=== PATIENT | female | born 1945 | race Caucasian/White ===

== ENCOUNTER 2020-05-10 07:44 | Outpatient (REF) | payer MEDICARE, SELFPAY ==
[2020-05-10 12:11] LABS: Alanine Aminotransferase 12 U/L (0-31); Anion Gap 11 (12-20); Aspartate Amino Transferase 20 U/L (5-31); Blood Urea Nitrogen 16 mg/dL (9-16); Calcium 9.3 mg/dL (8.4-10.2); Carbon Dioxide 28 mmol/L (22-29); Chloride 105 mmol/L (96-108); Cholesterol 209 mg/dL; Estimated Glomerular Filt Rate > 60; Glucose Fasting 84 mg/dL (60-99); HDL Cholesterol 74 mg/dL; LDL Cholesterol Calculated 125 mg/dl; Potassium 4.4 mmol/l (3.3-5.1); Sodium 140 mmol/L (135-145); Triglycerides 53 mg/dL
[2020-05-10 12:42] LABS: Vitamin D 25-OH Total 27.8 ng/mL (>30)
== END 2020-05-10 07:45 | disposition home or self-care (01) ==
LOC: HO.HMGCLDS 07:44
PROVIDERS: PCP Internal Medicine; Visit Provider Internal Medicine
DX: M85.80 Other specified disorders of bone density and structure, unspecified site (principal); Z00.01 Encounter for general adult medical examination with abnormal findings; I10 Essential (primary) hypertension
CPT/HCPCS: 80048; 80061; 82306; 84450; 84460

== ENCOUNTER 2021-02-02 15:44 | Outpatient (REF) | payer MEDICARE, SELFPAY ==
--- NOTE | ~2021-02-02 | US_ITS ---
EXAMINATION: US VENOUS ULTRASOUND WITH DOPPLER LOWER EXTREMITY, LEFT CLINICAL INFORMATION: Localized swelling, mass or lump left lower lobe COMPARISON: None TECHNIQUE: Ultrasound of the deep veins is performed from the hip to the calf with compression sonography and color and pulse Doppler assessment. Spectral analysis with color-flow imaging is performed. FINDINGS: There is normal venous compression and respiratory variation and augmented flow. The visualized common femoral vein, superficial femoral vein, profunda femoral vein, popliteal vein, and the trifurcation region shows no evidence of deep venous thrombosis. There is no significant popliteal fossa cyst. There are multiple left calf distal varicosities seen which are compressible. There is discoloration of skin above these varicosities. If the patient's symptoms persist, followup ultrasound in 5 days 7 days might be of value to exclude proximal propagation from a non-visualized calf vein. US/US venous duplex LE IMPRESSION: No DVT demonstrated in the left lower extremity. Multiple varicosities in the left distal calf. The varicosities are compressible.
== END 2021-02-02 15:45 | disposition home or self-care (01) ==
LOC: HO.US 15:44
PROVIDERS: PCP Internal Medicine; Visit Provider Internal Medicine
DX: R22.42 Localized swelling, mass and lump, left lower limb (principal)
CPT/HCPCS: 93971

== ENCOUNTER → 2021-03-23 10:17 | Outpatient (BNVA) | payer MEDICARE, SELFPAY | PROVIDERS: PCP Internal Medicine; Visit Provider Surgery Vascular Surgery | DX: I83.12 Varicose veins of left lower extremity with inflammation (principal) | CPT/HCPCS: 99202 ==

== ENCOUNTER 2021-05-13 08:59 | Outpatient (REF) | payer MEDICARE, SELFPAY ==
[2021-05-13 11:57] LABS: Alanine Aminotransferase 14 U/L (0-31); Anion Gap 13 (12-20); Aspartate Amino Transferase 16 U/L (5-31); Blood Urea Nitrogen 11 mg/dL (9-16); Calcium 9.6 mg/dL (8.4-10.2); Carbon Dioxide 25 mmol/L (22-29); Chloride 107 mmol/L (96-108); Cholesterol 204 mg/dL; Estimated Glomerular Filt Rate > 60; Glucose Fasting 90 mg/dL (60-99); HDL Cholesterol 71 mg/dL; LDL Cholesterol Calculated 118 mg/dl; Potassium 4.9 mmol/L (3.3-5.1); Sodium 140 mmol/L (135-145); Triglycerides 75 mg/dL
[2021-05-13 12:04] LABS: Vitamin D 25-OH Total 29.8 ng/mL (>30)
== END 2021-05-13 09:00 | disposition home or self-care (01) ==
LOC: HO.HMGCLDS 08:59
PROVIDERS: PCP Internal Medicine; Visit Provider Internal Medicine
DX: Z00.01 Encounter for general adult medical examination with abnormal findings (principal); M85.80 Other specified disorders of bone density and structure, unspecified site; I10 Essential (primary) hypertension; Z78.0 Asymptomatic menopausal state
CPT/HCPCS: 36415; 80048; 80061; 82306; 84450; 84460

== ENCOUNTER 2022-05-21 08:54 | Outpatient (REF) | payer MEDICARE, SELFPAY ==
[2022-05-21 11:30] LABS: MANUAL DIFF FLAG NO
[2022-05-21 11:55] LABS: Basophils Percent Auto 0.5 % (0-2); Eosinophils Absolute Auto 0.2 X10*3/uL (0.0-0.4); Eosinophils Percent Auto 5.1 % (0-4); Hematocrit 41.6 % (37.0-47.0); Hemoglobin 13.4 g/dl (12.0-16.0); Imm Gran Abs Auto 0.01 X10*3/uL (0.00-0.03); Imm Gran Pct Auto 0.3 % (0.0-0.4); Lymphocytes Absolute Auto 0.9 X10*3/uL (1.2-4.9); Lymphocytes Percent Auto 25.1 % (20-40); Mean Corpuscular HGB Conc 32.2 g/dl (31.0-35.0); Mean Corpuscular Volume 93.3 fL (80.0-98.0); Mean Platelet Volume 11.3 fL (9.4-12.3); Monocytes Absolute Auto 0.4 X10*3/uL (0.1-1.2); Monocytes Percent Auto 10.4 % (2-11); Neutrophils Absolute Auto 2.2 x10*3/uL (2.0-8.3); Neutrophils Percent Auto 58.6 % (45-73); Platelet Count 203 X10*3/uL (160-400); Red Blood Count 4.46 X10*6/uL (4.20-5.50); White Blood Count 3.8 X10*3/uL (4.8-10.8)
[2022-05-21 12:38] LABS: Alanine Aminotransferase 11 U/L (0-31); Aspartate Amino Transferase 15 U/L (5-31); Blood Urea Nitrogen 13 mg/dL (9-16); Calcium 9.7 mg/dL (8.4-10.2); Cholesterol 218 mg/dL; Estimated Glomerular Filt Rate > 60; Glucose Fasting 94 mg/dL (60-99); HDL Cholesterol 71 mg/dL; LDL Cholesterol Calculated 136 mg/dl; Triglycerides 57 mg/dL; Vitamin D 25-OH Total 34.3 ng/mL (>30)
[2022-05-21 12:51] LABS: Anion Gap 12 (12-20); Carbon Dioxide 27 mmol/L (22-29); Chloride 108 mmol/L (96-108); Potassium 4.5 mmol/L (3.3-5.1); Sodium 142 mmol/L (135-145)
== END 2022-05-21 08:55 | disposition home or self-care (01) ==
LOC: HO.HMGCLDS 08:54
PROVIDERS: PCP Internal Medicine; Visit Provider Internal Medicine
DX: Z00.01 Encounter for general adult medical examination with abnormal findings (principal); M85.80 Other specified disorders of bone density and structure, unspecified site; Z78.0 Asymptomatic menopausal state
CPT/HCPCS: 36415; 80048; 80061; 82306; 84450; 84460; 85025

== ENCOUNTER 2023-05-30 10:53 | Outpatient (AMB) | payer MEDICARE, SELFPAY ==
[2023-05-30 11:25] VITALS: BP 150/86; PULSE 51; O2SAT 100; BMI 28.6
--- NOTE | 2023-05-30 11:25 | MHC.PC.OV ---
Vital Signs 05/30/23 11:25 05/30/23 12:00 Height 5 ft 4 in Weight 166 lb 6 oz BMI 28.6 BP 150/86 H 140/80 H Blood Pressure Location Lt brachial Lt brachial Position Sitting Pulse 51 Pulse Source Pulse Oximeter Pulse Oximetry (%) 100 Oxygen Delivery Method Room Air Intake Visit Reasons: Annual PE Intake Note: Pt is here for her Annual PE Allergies azithromycin [Zithromax Z-Andriy] Adverse Reaction (Unknown, Verified 05/30/23 11:40) lightheadedness Medication List - Last Reconciled 05/30/23 by Linda Vuong MD calcium-vitamin D2 tabs PO cholecalciferol (vitamin D3) 25 mcg PO DAILY cranberry 400 mg PO DAILY triamcinolone acetonide 0.1% 1 appl topical BID 10 days Tobacco use date assessed: 05/30/23 Fall risk assessment: No Falls in past year Last assessed Fall Risk: 05/30/23 Dental Screening Dental Screen Date: 05/30/23 Did you have a dental visit in the last 12 months?: Yes Did you have a dental problem in the last 6 months where you did not have access to dental care?: No Was dental information given to patient?: Patient has dentist HPI Annual PE HPI Details 78-year-old lady here today for her physical exam. She has presence of osteopenia in multiple side seen on last bone density scan done in 2021 . Up-to-date with her screening mammogram done at [facility] December 2022 with negative findings and she had a colonoscopy done 2015, due again if patient wishes to repeat another 1 in 2025. Complains of bilateral shoulder pain and stiffnessafter raking the lawn for 3 days She has had her flu shot this year, has not yet had her COVID booster, up-to-date with her pneumonia vaccine, has not yet had her shingles vaccine. Blood pressure noted to be elevated on this visit. Patient states that she has been under lot of stress, taking care of her who is ill, and it is left to her to do most of the day-to-day management of her household. Overall however she has has been feeling well [facility] Medical History (Updated 05/30/23 @ 12:53 by Linda Vuong MD) Current hypersensitivity reaction Allergic rhinitis Menopause Varicose veins of lower extremity Acute dermatitis Lump of skin of left lower extremity Decreased hearing of right ear Osteoarthritis Osteopenia after menopause Surgical History History of carpal tunnel surgery History of ear surgery History of total hysterectomy Family History Father Pancreatic cancer Mother Dementia Sister Breast cancer Sister Breast cancer Son Mental health disorder Social History Housing: House Alcohol intake: current Patient Tobacco Use Status: Never used Tobacco e-Cigarette/Vaping Use: Never Used Second Hand Smoke Exposure: No service: No Current occupational status: retired Cognitive needs: No Hearing needs: No Vision needs: Yes Questionnaire PHQ-9 Over the last 2 weeks, how often have you been bothered by any of the following problems? 1. Little interest or pleasure in doing things: not at all 2. Feeling down, depressed, or hopeless: not at all 3. Trouble falling or staying asleep, or sleeping too much: not at all 4. Feeling tired or having little energy: not at all 5. Poor appetite or overeating: not at all 6. Feeling bad about yourself - or that you are a failure or have let yourself or your family down: not at all 7. Trouble concentrating on things, such as reading the newspaper or watching television: not at all 8. Moving or speaking so slowly that other people could have noticed. Or the opposite - being so fidgety or restless that you have been moving around a lot more than usual: not at all 9. Thoughts that you would be better off or of hurting yourself in some way: not at all Total score: 0 Depression Screening Interpretation: Negative Depression Screening Done: Yes 63277 - PHQ-9 Billing: Yes Source: Developed by Drs. Nate John, Jade Wise, Jamison Tapia and colleagues, with an educational taryn from [employer]. Thrive Questionnaire Date Thrive assessed: 05/30/23 I am a: Patient What is your living situation today?: I have a steady place to live Within the past 12 months, did the food you bought not last and you didn't have the money to get more?: Never true Within the past 12 months, did you worry whether your food would run out before you got money to buy more?: Never true Do you have trouble paying for medicines?: No Do you have trouble getting transportation to medical appointments?: No Do you have trouble paying your heating and electricity bill?: No Do you have trouble taking care of your child, family member or friend?: No Do you have trouble with day-to-day activities such as bathing, preparing meals, shopping, managing finances, etc.?: No Are you currently unemployed and looking for a job?: No Are you interested in more education?: No AUDIT C Alcohol Use Questionnaire (AUDIT-C) 1. How often do you have a drink containing alcohol?: 4 or more times a week 2. How many drinks containing alcohol do you have on a typical day when you are drinking?: 1 or 2 3. How often do you have six or more drinks on one occasion?: Never Total Score: 4 PARAS-7 AMB Questionnaire PARAS-7 Date PARAS - 7 assessed: 05/30/23 Feeling nervous, anxious, or on edge: 0 = Not at all Not being able to stop or control worryin = Not at all Worrying too much about different things: 0 = Not at all Trouble relaxin = Not at all Being so restless that it is hard to sit still: 0 = Not at all Becoming easily annoyed or irritable: 0 = Not at all Feeling afraid as if something awful might happen: 0 = Not at all Total PARAS-7 score (0-4 normal; 5-9 mild; 10-14 moderate; 15-21 severe): 0 Source: Developed by Drs. Nate John, Jade Wise, Jamison Tapia and colleagues, with an educational taryn from [employer]. PARAS-7 Assessment Billing PARAS-7 Assessment Tool: PARAS-7 Assessment 19360 Review of Systems Const Denies body aches, Denies difficulty sleeping, Denies fatigue, Denies fever(s), Denies headache(s), Denies malaise, Denies poor appetite and Denies weakness Eyes Details: SEES DR. YUAN Denies change in vision ENT Denies dizziness, Denies headache(s), Denies nasal congestion, Denies nasal discharge and Denies sore throat Card Denies chest pain, Denies lightheadedness, Denies palpitations and Denies dyspnea Resp Denies chest congestion, Denies cough, Denies dyspnea and Denies wheezing GI Denies abdominal pain, Denies change in bowel habits and Denies heartburn Denies urinary frequency, Denies dysuria and Denies urinary urgency Musc Reports as per HPI Skin/Breast Denies breast pain, Denies breast mass, Denies lesions and Denies rash Neuro Denies dizziness, Denies headache(s) and Denies weakness Psych Reports no additional complaints Endo Denies fatigue, Denies polydipsia, Denies polyuria and Denies palpitations Jevon/Lymph Denies easy bruising Aller/Immun Denies seasonal rhinorrhea and Denies wheezing Physical exam (Primary Care) Vital Signs: Last Vital Signs Pulse 51 05/30/23 11:25 BP 140/80 H 05/30/23 12:00 Pulse Ox 100 05/30/23 11:25 Oxygen Delivery Method Room Air 05/30/23 11:25 BMI result Body Mass Index 28.6 Tobacco/Smoking Status: Tobacco use Status Tobacco use date assessed 05/30/23 05/30/23 11:34 Patient Tobacco Use Status Never used Tobacco 05/30/23 11:25 e-Cigarette/Vaping Use Never Used 05/30/23 11:25 PHQ-9: PHQ-9 Score PHQ-9: Total score 0 05/30/23 12:14 Depression Screening Interpretation: Negative Thrive Assessment: Date of Thrive Assessment Date Thrive assessed 05/30/23 05/30/23 12:14 Const Other: Alert oriented x3, no acute cardiorespiratory distress ambulatory no gait Orientation/consciousness: patient oriented x3 [facility] Ears: hearing grossly normal bilaterally, external ears normal and Abnormal EAC present excessive cerumen on the right General nose exam: Normal external nose present and Normal nares present Mouth: oropharynx normal and moist mucous membranes Eyes General: appearance normal, both eyes and all related structures Neck Other: Supple, no lymphadenopathy, thyroid gland nonpalpable Chest Breast/axilla palpation: normal palpation of the breasts Resp Auscultation: clear to auscultation bilaterally Cardio Other: S1-S2 present regular rate noted Bruits: no abdominal aortic bruits GI Inspection: Yes normal to inspection Palpation (GI): No Abdominal aortic bruit present, Soft to palpation, nontender, no guarding and no masses Auscultation: normal bowel sounds General: Yes no CVA tenderness and Yes deferred Back/Spine/Pelvis Back: no CVA tenderness and No back tenderness Skin General skin exam: no rashes or lesions noted Neuro General: patient oriented x3, gait normal, moves all extremities, Normal light touch and pain sensation, no focal motor deficits and CN's II-XI intact bilaterally Cognition (Neuro): normal cognition Gait exam (Neuro): Normal gait present Motor exam (neuro): 5/5 motor strength present throughout Sensory Exam: double simultaneous stimulation for sensation normal Extrem General: Yes full ROM, Yes no joint enlargement, Yes no clubbing, cyanosis or edema, Yes no calf tenderness and Yes normal gait Psych Appearance: grossly normal and well kempt Mental Status: mental status grossly normal Speech and movement: Normal speech and movement present Affect: normal affect Attitude: cooperative Thought process: Normal thought process present Assessment and Plan Assessment & Plan (1) Annual visit for general adult medical examination with abnormal findings: Code(s): Z00.01 - Encounter for general adult medical examination with abnormal findings Plan: Will check appropriate labs. Continue with regular dental visit every 6 months and regular eye exams, at least every 2 years, sees Dr. Yuan. Take adequate calcium in diet and vitamin-D 3 at 2000 IU per cap once a day, in addition to weight-bearing exercises to help maintain good muscle tone and weight control. Up-to-date with her screening mammogram done December 2022, had a bone density scan 2021 which showed multiple set of osteopenia, no history of fractures, due for recheck again in 2019 for. She had a negative colonoscopy done 2015, not due again until 10 years. She is up-to-date with all her vaccinations except for her shingles vaccine. (2) Osteopenia after menopause: Code(s): M85.80 - Other specified disorders of bone density and structure, unspecified site Plan: Do regular weight-bearing exercise, continue take adequate calcium from dietary sources and continue take vitamin-D 3 at least 2000 units daily (3) Osteoarthritis: Code(s): M19.90 - Unspecified osteoarthritis, unspecified site Plan: Advised to try taking Tylenol arthritis as needed for joint pain (4) Bilateral shoulder pain: Code(s): M25.511 - Pain in right shoulder; M25.512 - Pain in left shoulder Plan: Try massaging Aleve cream to affected area wheels once or twice a day as needed. May take a Tylenol arthritis 650 mg 1 tablet every 8 hours as needed. Do [id number] exercises for both upper extremities to avoid getting a frozen shoulder. Return to the clinic if no improvement of symptoms noted after 1 or 2 weeks. Orders: Orders Aspartate Amino Transferase Today E89.40 - Asymptomatic postprocedural ovarian failure, Z00.01 - Encounter for general adult medical examination with abnormal findings, Z13.1 - Encounter for screening for diabetes mellitus, Z13.220 - Encounter for screening for lipoid disorders Vitamin D 25-OH Total Today E89.40 - Asymptomatic postprocedural ovarian failure, Z00.01 - Encounter for general adult medical examination with abnormal findings, Z13.1 - Encounter for screening for diabetes mellitus, Z13.220 - Encounter for screening for lipoid disorders Alanine Aminotransferase Today E89.40 - Asymptomatic postprocedural ovarian failure, Z00.01 - Encounter for general adult medical examination with abnormal findings, Z13.1 - Encounter for screening for diabetes mellitus, Z13.220 - Encounter for screening for lipoid disorders Hemoglobin and Hematocrit Today E89.40 - Asymptomatic postprocedural ovarian failure, Z00.01 - Encounter for general adult medical examination with abnormal findings, Z13.1 - Encounter for screening for diabetes mellitus, Z13.220 - Encounter for screening for lipoid disorders Basic Metabolic Panel Fasting Today E89.40 - Asymptomatic postprocedural ovarian failure, Z00.01 - Encounter for general adult medical examination with abnormal findings, Z13.1 - Encounter for screening for diabetes mellitus, Z13.220 - Encounter for screening for lipoid disorders Lipid Panel Today E89.40 - Asymptomatic postprocedural ovarian failure, Z00.01 - Encounter for general adult medical examination with abnormal findings, Z13.1 - Encounter for screening for diabetes mellitus, Z13.220 - Encounter for screening for lipoid disorders Coding Level of Care Code Est Pt Prev Care >65y(64950) Diagnoses Annual visit for general adult medical examination with abnormal findings Z00.01 Osteopenia after menopause M85.80 Osteoarthritis M19.90 Bilateral shoulder pain M25.511; M25.512 Additional Codes PARAS-7 Assessment Billing - PARAS-7 Assessment Tool: PARAS-7 Assessment [id number] ([id number])
[2023-05-30 12:00] VITALS: BP 140/80
== END 2023-05-30 13:04 | disposition home or self-care (01) ==
PROVIDERS: PCP Internal Medicine; Visit Provider Internal Medicine
DX: Z00.00 Encounter for general adult medical examination without abnormal findings (principal); M85.80 Other specified disorders of bone density and structure, unspecified site; M19.90 Unspecified osteoarthritis, unspecified site; M25.511 Pain in right shoulder; M25.512 Pain in left shoulder
CPT/HCPCS: 99397

== ENCOUNTER 2023-06-03 09:50 | Outpatient (REF) | payer MEDICARE, SELFPAY ==
[2023-06-03 13:57] LABS: Hematocrit 41.9 % (37.0-47.0); Hemoglobin 13.5 g/dl (12.0-16.0)
[2023-06-03 14:29] LABS: Alanine Aminotransferase 11 U/L (0-31); Anion Gap 10 (12-20); Aspartate Amino Transferase 17 U/L (5-31); Blood Urea Nitrogen 12 mg/dL (9-16); Calcium 9.9 mg/dL (8.4-10.2); Carbon Dioxide 27 mmol/L (22-29); Chloride 109 mmol/L (96-108); Cholesterol 206 mg/dL (<200); Estimated Glomerular Filt Rate > 60; Glucose Fasting 90 mg/dL (60-99); HDL Cholesterol 73 mg/dL (>40); LDL Cholesterol Calculated 121 mg/dL (<100); Potassium 4.4 mmol/L (3.3-5.1); Sodium 142 mmol/L (135-145); Triglycerides 64 mg/dL (<150); Vitamin D 25-OH Total 35.7 ng/mL (>30)
== END 2023-06-03 09:51 | disposition home or self-care (01) ==
LOC: HO.HMGCLDS 09:50
PROVIDERS: PCP Internal Medicine; Visit Provider Internal Medicine
DX: Z00.01 Encounter for general adult medical examination with abnormal findings (principal); Z13.220 Encounter for screening for lipoid disorders; Z13.1 Encounter for screening for diabetes mellitus; E89.40 Asymptomatic postprocedural ovarian failure
CPT/HCPCS: 36415; 80048; 80061; 82306; 84450; 84460; 85014; 85018

== ENCOUNTER 2023-09-02 11:22 | Outpatient (AMB) | payer MEDICARE, SELFPAY ==
--- NOTE | 2023-09-02 12:04 | MHC.OFFWIV ---
Intake Vital Signs 09/02/23 12:05 Weight 164 lb 4 oz BP 130/90 H Blood Pressure Location Lt brachial Position Sitting Pulse 77 Pulse Source Pulse Oximeter Pulse Oximetry (%) 94 Oxygen Delivery Method Room Air Intake Visit Reasons: EP ?Sinus infection (masked) lobby Intake Note: Patient here for sinus infection, pt states face hurts and teeth hurt for about 3 weeks now. Patient Tobacco Use Status: Never used Tobacco Allergies azithromycin [Zithromax Z-Andriy] Adverse Reaction (Unknown, Verified 09/02/23 12:06) lightheadedness Medication List - Last Reconciled 09/02/23 by KENYA Sahni amoxicillin 875 mg PO BID 7 days calcium-vitamin D2 tabs PO cholecalciferol (vitamin D3) 25 mcg PO DAILY cranberry 400 mg PO DAILY triamcinolone acetonide 0.1% 1 appl topical BID 10 days Do you need a note to return to daycare/school/sports/work: No HPI HPI Comments History of Present Illness Details 78-year-old female presents today complaining of 3 weeks of sinus pain and pressure. She does have a past medical history of sinus infections but usually do not occur to the fall. She started with a URI 3 weeks ago which has essentially resolved but now she is having pain in her maxillary sinus with some dental discomfort [facility] Medical History (Updated 09/02/23 @ 12:35 by KENYA Sahni) Current hypersensitivity reaction Allergic rhinitis Menopause Varicose veins of lower extremity Acute dermatitis Lump of skin of left lower extremity Decreased hearing of right ear Osteoarthritis Osteopenia after menopause Surgical History History of carpal tunnel surgery History of ear surgery History of total hysterectomy Family History Father Pancreatic cancer Mother Dementia Sister Breast cancer Sister Breast cancer Son Mental health disorder Social History Housing: House Alcohol intake: current Patient Tobacco Use Status: Never used Tobacco e-Cigarette/Vaping Use: Never Used Second Hand Smoke Exposure: No service: No Current occupational status: retired Cognitive needs: No Hearing needs: No Vision needs: Yes Review of Systems Const All systems reviewed & are unremarkable except as noted in HPI and below Eyes Reports no additional complaints ENT Reports post nasal drip, Reports sinus pain and Reports sinus pressure Card Reports no additional complaints Resp Reports no additional complaints GI Reports no additional complaints Physical Exam Vital Signs: Last Vital Signs Pulse 77 09/02/23 12:05 BP 130/90 H 09/02/23 12:05 Pulse Ox 94 09/02/23 12:05 Oxygen Delivery Method Room Air 09/02/23 12:05 Const General: healthy appearing and no acute distress HEENT Head: Yes normal to inspection, Yes normocephalic and Yes atraumatic Ears: hearing grossly normal bilaterally, external ears normal, TM's normal bilaterally, TM normal on the right, TM normal on the left and EAC's normal General nose exam: Normal external nose present Face and sinus: Yes sinus tenderness (maxillary sinus ) and Yes Facial tenderness on exam of face and sinuses Resp Effort & Inspection: normal respiratory effort Auscultation: clear to auscultation bilaterally Cardio Rate: regular rate Rhythm: regular rhythm Assessment & Plan Assessment & Plan (1) Sinusitis: Code(s): J32.9 - Chronic sinusitis, unspecified Plan: The patient will take antibiotics for 7 days. I also advised her to breathe warm steam to break up her sinuses. Follow up with her PCP as needed Plan See plan Medications: New amoxicillin 875 mg PO BID 7 days 14 tabs 0RF Coding Level of Care Code Est Pt Level 3 (32309) Diagnoses Sinusitis J32.9
[2023-09-02 12:05] VITALS: BP 130/90; PULSE 77; O2SAT 94
== END 2023-09-02 13:17 | disposition home or self-care (01) ==
PROVIDERS: PCP Internal Medicine; Visit Provider Physician Assistant Medical
DX: J32.9 Chronic sinusitis, unspecified (principal)
CPT/HCPCS: 99213

== ENCOUNTER 2023-09-17 09:27 | Outpatient (AMB) | payer MEDICARE, SELFPAY ==
[2023-09-17 09:46] VITALS: BP 142/84; PULSE 86; O2SAT 98; BMI 28.4
--- NOTE | 2023-09-17 09:46 | MHC.OFFWIV ---
Intake Vital Signs 09/17/23 09:46 Height 5 ft 4 in Weight 165 lb 3 oz BMI 28.4 BP 142/84 H Blood Pressure Location Rt brachial Position Sitting Pulse 86 Pulse Source Pulse Oximeter Pulse Oximetry (%) 98 Oxygen Delivery Method Room Air Intake Visit Reasons: EP ?UTI Patient Tobacco Use Status: Never used Tobacco Allergies azithromycin [Zithromax Z-Andriy] Adverse Reaction (Unknown, Verified 09/17/23 09:48) lightheadedness Medication List - Last Reconciled 09/17/23 by Petty Mayorga MD calcium-vitamin D2 tabs PO cholecalciferol (vitamin D3) 25 mcg PO DAILY cranberry 400 mg PO DAILY triamcinolone acetonide 0.1% 1 appl topical BID 10 days Do you need a note to return to daycare/school/sports/work: No HPI EP ?UTI HPI Details Patient is a 69 female came in today to be evaluated for possible bladder infection Patient says her symptoms started on Saturday when she started having dysuria and then she noticed blood in her urine She also had slight chills last night There is no nausea vomiting no fever no back pain Patient was not able to give us urine sample She says that she had similar symptoms in the past when she had a bladder infection She did try jlvb-knz-wrsyqmg medication which helped just a little I am sending Macrobid 100 mg b.i.d. for 5 days Patient is to repeat urinalysis after finishing antibiotics. [facility] Medical History Current hypersensitivity reaction Allergic rhinitis Menopause Varicose veins of lower extremity Acute dermatitis Lump of skin of left lower extremity Decreased hearing of right ear Osteoarthritis Osteopenia after menopause Surgical History History of carpal tunnel surgery History of ear surgery History of total hysterectomy Family History Father Pancreatic cancer Mother Dementia Sister Breast cancer Sister Breast cancer Son Mental health disorder Social History Housing: House Alcohol intake: current Patient Tobacco Use Status: Never used Tobacco e-Cigarette/Vaping Use: Never Used Second Hand Smoke Exposure: No service: No Current occupational status: retired Cognitive needs: No Hearing needs: No Vision needs: Yes Review of Systems Const All systems reviewed & are unremarkable except as noted in HPI and below Physical Exam Vital Signs: Last Vital Signs Pulse 86 09/17/23 09:46 BP 142/84 H 09/17/23 09:46 Pulse Ox 98 09/17/23 09:46 Oxygen Delivery Method Room Air 09/17/23 09:46 BMI result Body Mass Index 28.4 Const General: no acute distress Orientation/consciousness: patient oriented x3 Eyes General: appearance normal, both eyes and all related structures Resp Effort & Inspection: normal respiratory effort and able to speak in complete sentences Auscultation: clear to auscultation bilaterally GI Other: Mild suprapubic discomfort bowel sounds positive General: Yes no CVA tenderness Back/Spine/Pelvis Back: no CVA tenderness Neuro General: patient oriented x3 Psych Mental Status: mental status grossly normal Assessment & Plan Assessment & Plan (1) Dysuria: Code(s): R30.0 - Dysuria (2) Blood in urine: Code(s): R31.9 - Hematuria, unspecified Qualifiers: Hematuria type: gross Qualified Code(s): R31.0 - Gross hematuria Plan Patient is a 69 female came in today to be evaluated for possible bladder infection Patient says her symptoms started on Saturday when she started having dysuria and then she noticed blood in her urine She also had slight chills last night There is no nausea vomiting no fever no back pain Patient was not able to give us urine sample She says that she had similar symptoms in the past when she had a bladder infection She did try ylfq-bgz-tnozxxf medication which helped just a little I am sending Macrobid 100 mg b.i.d. for 5 days Patient is to repeat urinalysis after finishing antibiotics. Orders: Orders UA CC w/rflx Micro + Cult Today R30.0 - Dysuria, R31.9 - Hematuria, unspecified Medications: New nitrofurantoin monohyd/m-cryst 100 mg (Macrobid) must administer with a meal/food 100 mg PO Q12H 10 caps 0RF 5 days Coding Level of Care Code Est Pt Level 3 (06568) Diagnoses Dysuria R30.0 Gross hematuria R31.0 Hematuria type: gross
== END 2023-09-17 11:41 | disposition home or self-care (01) ==
PROVIDERS: PCP Internal Medicine; Visit Provider Internal Medicine
DX: R30.0 Dysuria (principal); R31.0 Gross hematuria
CPT/HCPCS: 99213

== ENCOUNTER 2024-03-04 09:50 | Outpatient (AMB) | payer MEDICARE, SELFPAY ==
--- NOTE | 2024-03-04 10:13 | AM.OFFWIN_ITS ---
Intake Vital Signs 03/04/24 10:14 Height 5 ft 4 in Weight 159 lb BMI 27.3 BP 128/70 Blood Pressure Location Rt brachial Position Sitting Pulse 64 Pulse Source Pulse Oximeter Temp 98.0 F Temp Source Oral Pulse Oximetry (%) 97 Oxygen Delivery Method Room Air Intake Visit Reasons: EP Sore throat Intake Note: pt c/o sore throat, Started Saturday Patient Tobacco Use Status: Never used Tobacco Allergies azithromycin [Zithromax Z-Andriy] Adverse Reaction (Unknown, Verified 03/04/24 10:13) lightheadedness Do you need a note to return to daycare/school/sports/work: No HPI HPI Comments History of Present Illness Details Patient is a 78-year-old female complaining 3 days of a sore throat, fatigue, voice hoarseness and some head congestion. She denies any fevers, cough, ear pain, sinus pain or shortness of breath. She has not taken any medications to make herself feel better. ON LICENSE OF [facility] Medical History Current hypersensitivity reaction Allergic rhinitis Menopause Varicose veins of lower extremity Acute dermatitis Lump of skin of left lower extremity Decreased hearing of right ear Osteoarthritis Osteopenia after menopause Surgical History History of carpal tunnel surgery History of ear surgery History of total hysterectomy Family History Father Pancreatic cancer Mother Dementia Sister Breast cancer Sister Breast cancer Son Mental health disorder Social History Housing: House Alcohol intake: current Patient Tobacco Use Status: Never used Tobacco e-Cigarette/Vaping Use: Never Used Second Hand Smoke Exposure: No service: No Current occupational status: retired Cognitive needs: No Hearing needs: No Vision needs: Yes Review of Systems Const All systems reviewed & are unremarkable except as noted in HPI and below Physical Exam Vital Signs: Last Vital Signs Temp 98.0 F 03/04/24 10:14 Pulse 64 03/04/24 10:14 BP 128/70 03/04/24 10:14 Pulse Ox 97 03/04/24 10:14 Oxygen Delivery Method Room Air 03/04/24 10:14 BMI result Body Mass Index 27.3 Const General: cooperative, healthy appearing, comfortable and no acute distress Orientation/consciousness: patient oriented x3 Limitations: no limitations HEENT Head: Yes normal to inspection Ears: hearing grossly normal bilaterally, external ears normal and TM's normal bilaterally General nose exam: Normal external nose present, Normal nares present and No nasal discharge present Face and sinus: Yes normal facial exam Mouth: Normal oral and palatal mucosa present and moist mucous membranes Throat: Yes tonsils normal, Yes uvula midline and Yes posterior oropharynx abnormal (Erythema) Eyes General: appearance normal, both eyes and all related structures Neck Neck: Yes normal visual inspection Resp Effort & Inspection: normal respiratory effort, able to speak in complete sentences, no respiratory distress, not tachypneic, no tripod positioning and no use of accessory muscles Skin General skin exam: no rashes or lesions noted Neuro General: patient oriented x3 Extrem General: Yes normal to inspection and Yes no clubbing, cyanosis or edema Results AMB Rapid Strep AMB Rapid Strep Negative Last Edit by Tarik Reyez CMA on 03/04/24 10:33 Assessment & Plan Assessment & Plan (1) Pharyngitis: Code(s): J02.9 - Acute pharyngitis, unspecified Qualifiers: Pharyngitis/tonsillitis etiology: unspecified etiology Qualified Code(s): J02.9 - Acute pharyngitis, unspecified Plan: Rapid strep in office is negative, sent flu COVID and RSV. Plan See above Orders: Orders SARS-CoV2/FLU/RSV Today J06.9 - Acute upper respiratory infection, unspecified AMB Rapid Strep Screen Today Z13.9 - Encounter for screening, unspecified Coding Level of Care Code Est Pt Level 3 (64336) Diagnoses Pharyngitis, unspecified etiology J02.9 Pharyngitis/tonsillitis etiology: unspecified etiology
[2024-03-04 10:14] VITALS: BP 128/70; PULSE 64; TEMP 36.7; O2SAT 97; BMI 27.3
== END 2024-03-04 11:22 | disposition home or self-care (01) ==
PROVIDERS: PCP Internal Medicine; Visit Provider Physician Assistant
DX: J02.9 Acute pharyngitis, unspecified (principal)
CPT/HCPCS: 87880; 99213

== ENCOUNTER 2024-03-04 10:28 | Outpatient (REF) | payer MEDICARE, SELFPAY ==
[2024-03-04 14:07] LABS: Influenza A PCR NEGATIVE (Negative); Influenza B PCR NEGATIVE (Negative); Resp Syncy Virus RNA Qual PCR NEGATIVE (Negative); SARS COV2 PCR INHOUSE NEGATIVE (Negative)
== END 2024-03-04 10:29 | disposition home or self-care (01) ==
LOC: HO.LAB 10:28
PROVIDERS: Visit Provider Physician Assistant
DX: J06.9 Acute upper respiratory infection, unspecified (principal); Z13.9 Encounter for screening, unspecified
CPT/HCPCS: 0241U

== ENCOUNTER 2024-06-02 09:20 | Outpatient (AMB) | payer MEDICARE, SELFPAY ==
[2024-06-02 09:42] VITALS: BP 146/80; PULSE 70; O2SAT 97; BMI 27.5
--- NOTE | 2024-06-02 09:42 | MHC.PC.OV ---
Vital Signs 06/02/24 09:42 Height 5 ft 4 in Weight 160 lb BMI 27.5 BP 146/80 H Blood Pressure Location Rt brachial Position Sitting Pulse 70 Pulse Source Pulse Oximeter Pulse Oximetry (%) 97 Oxygen Delivery Method Room Air Intake Visit Reasons: Annual PE Intake Note: Pt is here today for her PE Allergies azithromycin [Zithromax Z-Andriy] Adverse Reaction (Unknown, Verified 06/02/24 10:14) lightheadedness Medication List - Last Reconciled 06/02/24 by Linda Vuong MD calcium carbonate 500 mg PO DAILY cholecalciferol (vitamin D3) 25 mcg PO DAILY cranberry 400 mg PO DAILY triamcinolone acetonide 0.1% 1 appl topical BID 10 days Tobacco use date assessed: 06/02/24 Fall risk assessment: No Falls in past year Last assessed Fall Risk: 06/02/24 Dental Screening Dental Screen Date: 06/02/24 Did you have a dental visit in the last 12 months?: Yes Did you have a dental problem in the last 6 months where you did not have access to dental care?: No Was dental information given to patient?: Patient has dentist HPI Annual PE HPI Details The patient is an 79-year-old female presenting for a physical examination and management of chronic conditions, including hypertension, and skin issues. She reports elevated blood pressure, with a measurement of 142, which she notes has been higher than her previous readings. The patient denies a history of essential hypertension. Denies any lightheadedness, headache, no chest pain nor shortness of breath. The patient states she has been dealing with athlete's foot, which started on the bottom of her feet and is now moving up her legs. She has been prescribed a ketoconazole cream and hydrocortisone by her facsimile machine operator, which has not been helping . 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 There is no significant improvement noted after using topical treatments. Compression socks have been recommended but inconsistently worn. The patient also mentions osteopenia, but has not recently had a bone density test as there were issues coordinating the appointment with her mammogram. She is also dealing with allergic rhinitis, particularly noticeable during March, leading to significant nasal congestion. She suffers from knee pain due to osteoarthritis and is scheduled for a cortisone injection. - Mammogram was last done in December. - Flu shot and RSV vaccine received in late March. - COVID-19 vaccine refused after adverse skin reaction. - Patient is updated with pneumonia vaccination. - Bone density scheduled in coordination with the next mammogram. - Patient is advised to consider shingles vaccination. 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 Surgical History History of carpal tunnel surgery History of ear surgery History of total hysterectomy Family History Father Pancreatic cancer Mother Dementia Sister Breast cancer Sister Breast cancer Son Mental health disorder Social History Housing: House Alcohol intake: current Patient Tobacco Use Status: Never used Tobacco e-Cigarette/Vaping Use: Never Used Second Hand Smoke Exposure: No service: No Current occupational status: retired Cognitive needs: No Hearing needs: No Vision needs: Yes Questionnaire PHQ-9 Over the last 2 weeks, how often have you been bothered by any of the following problems? 1. Little interest or pleasure in doing things: not at all 2. Feeling down, depressed, or hopeless: not at all 4. Feeling tired or having little energy: not at all 5. Poor appetite or overeating: not at all 6. Feeling bad about yourself - or that you are a failure or have let yourself or your family down: not at all 7. Trouble concentrating on things, such as reading the newspaper or watching television: not at all 8. Moving or speaking so slowly that other people could have noticed. Or the opposite - being so fidgety or restless that you have been moving around a lot more than usual: not at all 9. Thoughts that you would be better off or of hurting yourself in some way: not at all Total score: 0 Depression Screening Interpretation: Negative Depression Screening Done: Yes 38332 - PHQ-9 Billing: Yes Source: Developed by Drs. Nate John, Jamison Regalado and colleagues, with an educational taryn from [employer]. Thrive Questionnaire Date Thrive assessed: 06/02/24 I am a: Patient What is your living situation today?: I have a steady place to live Within the past 12 months, did the food you bought not last and you didn't have the money to get more?: Never true Within the past 12 months, did you worry whether your food would run out before you got money to buy more?: Never true Do you have trouble paying for medicines?: No Do you have trouble getting transportation to medical appointments?: No Do you have trouble paying your heating and electricity bill?: No Do you have trouble taking care of your child, family member or friend?: No Do you have trouble with day-to-day activities such as bathing, preparing meals, shopping, managing finances, etc.?: No Are you currently unemployed and looking for a job?: No Are you interested in more education?: No THRIVE Score: 0 AUDIT C Alcohol Use Questionnaire (AUDIT-C) 1. How often do you have a drink containing alcohol?: 2-4 times a month 2. How many drinks containing alcohol do you have on a typical day when you are drinking?: 1 or 2 3. How often do you have six or more drinks on one occasion?: Never Total Score: 2 PARAS-7 AMB Questionnaire PARAS-7 Date PARAS - 7 assessed: 06/02/24 Feeling nervous, anxious, or on edge: 0 = Not at all Not being able to stop or control worryin = Not at all Worrying too much about different things: 0 = Not at all Trouble relaxin = Not at all Being so restless that it is hard to sit still: 0 = Not at all Becoming easily annoyed or irritable: 0 = Not at all Feeling afraid as if something awful might happen: 0 = Not at all Total PARAS-7 score (0-4 normal; 5-9 mild; 10-14 moderate; 15-21 severe): 0 Source: Developed by Drs. Nate John, Jamison Regalado and colleagues, with an educational taryn from [employer]. PARAS-7 Assessment Billing PARAS-7 Assessment Tool: PARAS-7 Assessment 43385 Review of Systems Const Denies body aches, Denies difficulty sleeping, Denies fatigue, Denies fever(s), Denies headache(s), Denies malaise, Denies poor appetite and Denies weakness Eyes Details: SEES DR. SMITH Denies change in vision ENT Denies dizziness, Denies headache(s), Denies nasal congestion, Denies nasal discharge and Denies sore throat Card Denies chest pain, Denies lightheadedness, Denies palpitations and Denies dyspnea Resp Denies chest congestion, Denies cough, Denies dyspnea and Denies wheezing GI Denies abdominal pain, Denies change in bowel habits and Denies heartburn Denies urinary frequency, Denies dysuria and Denies urinary urgency Musc Reports as per HPI Skin/Breast Denies breast pain and Denies breast mass Neuro Denies dizziness, Denies headache(s) and Denies weakness Psych Reports no additional complaints Endo Denies fatigue, Denies polydipsia, Denies polyuria and Denies palpitations Jevon/Lymph Denies easy bruising Aller/Immun Denies seasonal rhinorrhea and Denies wheezing Physical exam (Primary Care) Vital Signs: Last Vital Signs Pulse 70 06/02/24 09:42 BP 146/80 H 06/02/24 09:42 Pulse Ox 97 06/02/24 09:42 Oxygen Delivery Method Room Air 06/02/24 09:42 BMI result Body Mass Index 27.5 Tobacco/Smoking Status: Tobacco use Status Tobacco use date assessed 06/02/24 06/02/24 09:43 Patient Tobacco Use Status Never used Tobacco 06/02/24 09:43 e-Cigarette/Vaping Use Never Used 06/02/24 09:43 Depression Screening Interpretation: Negative Thrive Assessment: Date of Thrive Assessment Date Thrive assessed 05/30/23 06/02/24 09:43 Const Other: Alert oriented x3, no acute cardiorespiratory distress ambulatory no gait Orientation/consciousness: patient oriented x3 HENMT Ears: hearing grossly normal bilaterally, external ears normal and Abnormal EAC present excessive cerumen on the right General nose exam: Normal external nose present and Normal nares present Mouth: oropharynx normal and moist mucous membranes Eyes General: appearance normal, both eyes and all related structures Neck Other: Supple, no lymphadenopathy, thyroid gland nonpalpable Chest Breast/axilla palpation: normal palpation of the breasts Resp Auscultation: clear to auscultation bilaterally Cardio Other: S1-S2 present regular rate noted Bruits: no carotid bruits GI Inspection: Yes normal to inspection Palpation (GI): Soft to palpation, nontender, no guarding and no masses Auscultation: normal bowel sounds General: Yes no CVA tenderness and Yes deferred Back/Spine/Pelvis Back: no CVA tenderness and No back tenderness Skin General skin exam: no rashes or lesions noted Neuro General: patient oriented x3, gait normal, moves all extremities, Normal light touch and pain sensation, no focal motor deficits and CN's II-XI intact bilaterally Cognition (Neuro): normal cognition Gait exam (Neuro): Normal gait present Motor exam (neuro): 5/5 motor strength present throughout Sensory Exam: double simultaneous stimulation for sensation normal Extrem General: Yes full ROM, Yes no joint enlargement, Yes no clubbing, cyanosis or edema, Yes no calf tenderness and Yes normal gait Psych Appearance: grossly normal and well kempt Mental Status: mental status grossly normal Speech and movement: Normal speech and movement present Affect: normal affect Attitude: cooperative Thought process: Normal thought process present Coding Level of Care Code Est Pt Prev Care >65y(25633) Diagnoses Annual visit for general adult medical examination with abnormal findings Z00. Osteopenia after menopause M85.80 Varicose veins of lower extremity I83.90 Menopause Z78.0 Encounter for counseling regarding advance directives Z71.89 Additional Codes PHQ-9 - 67020 - PHQ-9 Billing: Yes ([id number]) PARAS-7 Assessment Billing - PARAS-7 Assessment Tool: PARAS-7 Assessment 80683 ([id number]) Assessment & Plan Assessment & Plan (1) Annual visit for general adult medical examination with abnormal findings: Code(s): Z00.01 - Encounter for general adult medical examination with abnormal findings (2) Osteopenia after menopause: Code(s): M85.80 - Other specified disorders of bone density and structure, unspecified site Category: Medical (3) Varicose veins of lower extremity: Code(s): I83.90 - Asymptomatic varicose veins of unspecified lower extremity Category: Medical (4) Menopause: Code(s): Z78.0 - Asymptomatic menopausal state Category: Medical (5) Encounter for counseling regarding advance directives: Code(s): Z71.89 - Other specified counseling Plan: Initiated the conversation about Advanced Directives. Advanced Directives help patients prepare for current and future decisions about their medical treatment and place of care. Discussed with patient that it is a process where a patients current condition and prognosis are reviewed, their wishes for information regarding their illness are elicited, and likely medical dilemmas are presented and options discussed. Healthcare proxy completed today, MOLST form already done previously. These forms can be amended as needed, reviewed yearly and make changes as needed Plan - Follow up scheduled for blood pressure management; re-assess need for antihypertensive therapy if elevated pressures persist. - Continue treatment for athlete's foot with appropriate antifungal therapy as per facsimile machine operator. - Encourage regular use of compression stockings to manage symptoms of varicose veins; consider a vascular specialist referral if symptoms persist despite compression therapy. - Schedule for a bone density scan in conjunction with the next mammogram appointment to monitor osteopenia. - Regular use of Tylenol and scheduled cortisone injections recommended for knee osteoarthritis management. - Strongly consider shingles vaccination due to recurrent episodes despite prior mild severity. - Follow a fasting protocol for the scheduled lab test. Drink only water or black coffee before the test. - Maintain engagement in routine check-ups and screening procedures. Patient was informed and verbally consented to the use of an ambient scribe for clinic note documentation during this visit. Orders: Orders Lipid Panel 06/03/24 I83.90 - Asymptomatic varicose veins of unspecified lower extremity, M85.80 - Other specified disorders of bone density and structure, unspecified site, Z00.01 - Encounter for general adult medical examination with abnormal findings, Z13.1 - Encounter for screening for diabetes mellitus, Z13.220 - Encounter for screening for lipoid disorders, Z71.89 - Other specified counseling, Z78.0 - Asymptomatic menopausal state Vitamin D 25-OH Total 06/03/24 I83.90 - Asymptomatic varicose veins of unspecified lower extremity, M85.80 - Other specified disorders of bone density and structure, unspecified site, Z00.01 - Encounter for general adult medical examination with abnormal findings, Z13.1 - Encounter for screening for diabetes mellitus, Z13.220 - Encounter for screening for lipoid disorders, Z71.89 - Other specified counseling, Z78.0 - Asymptomatic menopausal state XR DEXA axial skeleton 06/02/24 M85.80 - Other specified disorders of bone density and structure, unspecified site, Z78.0 - Asymptomatic menopausal state Basic Metabolic Panel Fasting 06/03/24 I83.90 - Asymptomatic varicose veins of unspecified lower extremity, M85.80 - Other specified disorders of bone density and structure, unspecified site, Z00.01 - Encounter for general adult medical examination with abnormal findings, Z13.1 - Encounter for screening for diabetes mellitus, Z13.220 - Encounter for screening for lipoid disorders, Z71.89 - Other specified counseling, Z78.0 - Asymptomatic menopausal state Complete Blood Count Auto Diff 06/03/24 I83.90 - Asymptomatic varicose veins of unspecified lower extremity, M85.80 - Other specified disorders of bone density and structure, unspecified site, Z00.01 - Encounter for general adult medical examination with abnormal findings, Z13.1 - Encounter for screening for diabetes mellitus, Z13.220 - Encounter for screening for lipoid disorders, Z71.89 - Other specified counseling, Z78.0 - Asymptomatic menopausal state
== END 2024-06-02 10:46 | disposition home or self-care (01) ==
PROVIDERS: PCP Internal Medicine; Visit Provider Internal Medicine
DX: Z00.01 Encounter for general adult medical examination with abnormal findings (principal); M85.80 Other specified disorders of bone density and structure, unspecified site; I83.90 Asymptomatic varicose veins of unspecified lower extremity; Z78.0 Asymptomatic menopausal state; Z71.89 Other specified counseling

== ENCOUNTER → 2024-06-02 09:20 | Outpatient (BNVA) | payer MEDICARE, SELFPAY | PROVIDERS: PCP Internal Medicine; Visit Provider Internal Medicine | DX: Z00.01 Encounter for general adult medical examination with abnormal findings (principal); M85.80 Other specified disorders of bone density and structure, unspecified site; I83.90 Asymptomatic varicose veins of unspecified lower extremity; Z71.89 Other specified counseling; Z78.0 Asymptomatic menopausal state | CPT/HCPCS: 96127; 99397 ==

== ENCOUNTER 2024-06-03 08:57 | Outpatient (REF) | payer MEDICARE, SELFPAY ==
[2024-06-03 10:10] LABS: MANUAL DIFF FLAG NO
[2024-06-03 10:30] LABS: Basophils Percent Auto 0.6 % (0-2); Eosinophils Absolute Auto 0.1 X10*3/uL (0.0-0.4); Hematocrit 41.2 % (37.0-47.0); Hemoglobin 13.2 g/dl (12.0-16.0); Imm Gran Abs Auto 0.01 X10*3/uL (0.00-0.03); Imm Gran Pct Auto 0.3 % (0.0-0.4); Lymphocytes Percent Auto 29.1 % (20-40); Mean Corpuscular Hemoglobin 29.7 pg (27.0-33.0); Mean Corpuscular Volume 92.6 fL (80.0-98.0); Mean Platelet Volume 10.7 fL (9.4-12.3); Monocytes Absolute Auto 0.3 X10*3/uL (0.1-1.2); Monocytes Percent Auto 9.2 % (2-11); Neutrophils Percent Auto 58.8 % (45-73); Platelet Count 225 X10*3/uL (160-400); Red Blood Count 4.45 X10*6/uL (4.20-5.50); Red Cell Distribution Width 12.9 % (11.0-16.0); White Blood Count 3.5 X10*3/uL (4.8-10.8)
[2024-06-03 11:22] LABS: Anion Gap 9 (12-20); Blood Urea Nitrogen 15 mg/dL (9-16); Calcium 9.9 mg/dL (8.4-10.2); Carbon Dioxide 27 mmol/L (22-29); Chloride 109 mmol/L (96-108); Cholesterol 201 mg/dL (<200); Estimated Glomerular Filt Rate > 60; Glucose Fasting 98 mg/dL (60-99); HDL Cholesterol 70 mg/dL (>40); LDL Cholesterol Calculated 121 mg/dL (<100); Potassium 3.9 mmol/L (3.3-5.1); Sodium 141 mmol/L (135-145); Triglycerides 53 mg/dL (<150); Vitamin D 25-OH Total 39.4 ng/mL (>30)
--- OUTSIDE RECORDS SUMMARY | 2024-06-09 16:38 | XMS_ITS | Data Portability ---
Author Organization [facility], [facility], [facility] Address [address] [place] [address] Care Team Providers Care High Worker Name Role Phone CYDNEY VALENTEABEL Primary Care Provider Assessment No assessment recorded. Plan of Treatment Reminders Order Date Submit Date Provider Last Modified By Organization Details Last Modified Time Details Appointments RECHECK 15 2023 09:30A M Leticia peng PA-C Not available Not available Not available Lab None recorded . Referral None recorded . Procedures None recorded . Surgeries None recorded . Imaging None recorded . Medication Orders None recorded . Patient TargetsNo targets recorded. Patient InstructionsNo instructions recorded. Reason for Referral None Reported. Problems Name Problem SNOMED Code Status Onset Date Resolution Date Notes Provider Name and Address Organization Details Recorded Time No complaints [id number] Active Status : 'I'; Not Available [facility] 4 09:17:34 Problem Notes None recorded. Procedures Surgical History Date Name Laterality Status Provider Name and Address Organization Details Recorded Time 4 Knee Kenalog 40 1cc Injection, Bilateral completed Leticia Pena PA-C [address], [place], [address], [facility], [facility] 03/16/2024 14:26:22 4 Gel-One Knee Injection completed Morris Tesfaye PA-C [address], [place], [address], [facility], [facility] 01/15/2024 08:23:22 4 Knee Kenalog 40 1cc Injection, Bilateral completed Morris Tesfaye PA-C [address], [place], [address], [facility], [facility] 10/10/2023 07:34:11 Imaging Results None recorded. Procedure Notes None recorded. Medical Equipment None Reported. Allergies No known drug allergies Medications Name Sig Start Date Stop Date Status Note LastModified by Organization Details LastModified Time amoxicillin 875 mg tablet TAKE 1 TABLET BY MOUTH TWICE DAILY FOR 7 DAYS 03/14 completed Not Available Not Available Not Available hydrocortis one 2.5 % topical cream APPLY 1 APPLICATI ON CREAM TOPICALLY TO AFFECTED AREA ONCE DAILY FOR 30 DAYS 03/14 completed Not Available Not Available Not Available ciclopirox 0.77 % topical cream APPLY 1 APPLICATI ON OF CREAM TOPICALLY TO AFFECTED AREAS ON FEET TWICE DAILY 03/14 completed Not Available Not Available Not Available nitrofurant oin monohydrate /macrocryst als 100 mg capsule TAKE 1 CAPSULE BY MOUTH EVERY 12 HOURS FOR 5 DAYS. MUST TAKE WITH A MEAL/FOOD . 03/14 completed Not Available Not Available Not Available Vitals Date Recorded Body height Body mass index (BMI) Body weight Provider Name and Address Organization Details Last Updated DateTime 10/10/2023 157.48 cm 32.2 kg/m2 12130.26 g Morris Tesfaye PA-C [address] [facility] [address], [place], [address], [facility] 10/10/2023 09:45:15 Date Recorded Body height Body mass index (BMI) Body weight Provider Name and Address Organization Details Last Updated DateTime 01/15/2024 157.48 cm 32.2 kg/m2 99022.26 g EVELIO DONNELLY [place] Bj [facility] 01/15/2024 09:58:31 Date Recorded Body height Body mass index (BMI) Body weight Provider Name and Address Organization Details Last Updated DateTime 03/14/2024 157.48 cm 32.2 kg/m2 46304.26 g KATIE PETIT [facility] 03/14/2024 09:01:58 Social History None recorded. Functional Status None recorded. Mental Status None recorded. Family History Nothing Reported. Medical History No medical history recorded. Gynecological HistoryNo gynecological history recorded. Obstetrics History GPAL:G 0 P 0 0 0 0 Past Encounters Encounter ID Performer Location Encounter Start Date Encounter Closed Date Diagnosis/Indication Diagnosis SNOMED-CT Code Diagnosis ICD10 Code [id number] HUY Soto [address] [place] [address] 10/10/2023 09:33:50 10/31/2023 15:46:51 Osteoarthritis of right knee joint 0397268016 26998 M17.11 Osteoarthr itis of left knee joint 6075376877 46204 M17.12 [id number] HUY Soto [address] [place] [address] 01/15/2024 08:53:53 02/03/2024 14:51:11 Osteoarthritis of right knee joint 5630073290 44930 M17.11 Osteoarthr itis of left knee joint 8213886915 46860 M17.12 [id number] HUY Tai [address] [place] [address] 03/14/2024 08:52:46 04/06/2024 15:37:39 Osteoarthritis of right knee joint 7774347745 52867 M17.11 Osteoarthr itis of left knee joint 5979851372 16388 M17.12 Health Concerns Section Related Observation LastModified by Organization Detai ls LastModified Time None Recorded Concern Status LastModified by Organization Details LastModified Time None Recorded Advance Directives Directive None Recorded Payers Encounter Date Sequence Insurance Name Policy Number Policy Engle Covered Member ID Engle Member ID Guarantor Name 10/10/2023 1 [employer] - MED[employer]ARE [employer]VANTAGE PLAN (MEDICARE REPLACEMENT HMO) [id number] 04 Cherylanne M M Sliwa [id number] Yessicae M Sliwa 01/15/2024 1 [employer] - MEDICARE [employer]VANTAGE PLAN (MEDICARE REPLACEMENT HMO) [id number] Cherylanne M M Sliwa [id number] Madysonylanne M Sliwa 03/14/2024 1 [employer] - MEDICARE [employer]VANTAGE PLAN (MEDICARE REPLACEMENT HMO) [id number] 04 Cherylanne M M Sliwa [id number] Susanneanne M Sliwa Notes Date Note Type Note Provider Name and Address Organization Details Recorded Time 10/10/2023 text/html I am seeing the patient today under the supervision of {{Selina* Linda} } who was available but who did not see the patient. Chief ComplaintThe patient presents today for recheck of bilateral knee osteoarthritis. Is known to have knee arthritis treated conservatively to this point with {{1 2 3*}} months relief of symptoms. Presents today for recheck secondary to increased knee pain. History of Present Illness? ? Allergy list reviewed ? ? Medication list reviewed Past Medical/Surgical HistoryReviewed today, otherwise unchanged per intake sheet. Physical Findings General Appearance:?? Well developed. ?? In no acute distress.Musculoskele alphonso System:Knee:General/b ilateral: ?? No laxity of the knee.Right Knee: ? ? Medial aspect was tender on palpation. ?? No erythema. ?? No warmth.Left Knee: ? ? Medial aspect was tender on palpation. ?? No erythema. ?? No warmth.Musculoskeleta l Scales:General/bilate ral: ? ? Mild effusion noted.Neurological:?? Oriented to time, place, and person.Gait And Stance: ?? Normal.Psychiatric:?? Mood was appropriate to the affect. Left knee 0-120 degrees of flexion with discomfort.Right knee 0-120 degrees of flexion with discomfort. Assessment? ? Osteoarthritis of knee -bilateral knees PlanMore than 50% of todays visit was spent on direct patient counseling regarding their knee condition and treatment options both operative with knee arthroplasty and non-operative, including oral medications and injection therapy. After discussion, my clinical decision was to go forth with an intra-articular cortisone injection. After explaining risks and benefits, under meticulous aseptic technique, each knee was injected with, 1cc of Kenalog 40mgs and 4 cc of Marcaine 1/4%. They tolerated the procedures well. Post injection precautions reviewed. Follow up with us in 3 months for further discussion of total knee replacement surgery versus continued conservative treatment. Would recommend a trial of Visco supplementation. Authorization will be obtained. Morris Tesfaye PA-C [address] [facility] [address], [place], [address], [facility] 10/10/2023 10:18:38 01/15/2024 text/html I am seeing the patient today under the supervision of who was available but who did not see the patient. Reason For VisitPatient is here today for Manolo gel 1 injection bilateral knees. Patient reports no adverse reaction from previous injections. Physical Findings Evaluation of the knees reveal no evidence of infection, no significant joint effusion, no warmth, or erythema. The injection sites are benign. Calves are supple and nontender. 5/5 strength. Some discomfort with range of motion. Assessment? ? Osteoarthritis of knee -bilateral knees Plan After meticulous sterile preparation, the knees bilaterally were injected with 1 vial of Manolo gel 1. Post-injection precautions were reviewed. I recommend ice, restriction of activities and re-evaluation next week for follow up injection. Morris Tesfaye PA-C [address] [facility] [address], [place], [address], [facility] [place] [facility] 01/15/2024 12:28:52 03/14/2024 text/html I am seeing the patient today under the supervision of {{Selina Mccann dler#}} who was available but who did not see the patient. Chief ComplaintThe patient presents today for recheck of bilateral knee osteoarthritis. Is known to have knee arthritis treated conservatively to this point with {{1 2 3*}} months relief of symptoms. Presents today for recheck secondary to increased knee pain. History of Present Illness? ? Allergy list reviewed ? ? Medication list reviewed Past Medical/Surgical HistoryReviewed today, otherwise unchanged per intake sheet. Physical Findings General Appearance:?? Well developed. ?? In no acute distress.Musculoskele alphonso System:Knee:General/b ilateral: ?? No laxity of the knee.Right Knee: ? ? Medial aspect was tender on palpation. ?? No erythema. ?? No warmth.Left Knee: ? ? Medial aspect was tender on palpation. ?? No erythema. ?? No warmth.Musculoskeleta l Scales:General/bilate ral: ? ? Mild effusion noted.Neurological:?? Oriented to time, place, and person.Gait And Stance: ?? Normal.Psychiatric:?? Mood was appropriate to the affect. Left knee 0-120 degrees of flexion with discomfort.Right knee 0-120 degrees of flexion with discomfort. Assessment? ? Osteoarthritis of knee -bilateral knees PlanMore than 50% of todays visit was spent on direct patient counseling regarding their knee condition and treatment options both operative with knee arthroplasty and non-operative, including oral medications and injection therapy. After discussion, my clinical decision was to go forth with an intra-articular cortisone injection. After explaining risks and benefits, under meticulous aseptic technique, each knee was injected with, 1cc of Kenalog 40mgs and 4 cc of Marcaine 1/4%. They tolerated the procedures well. Post injection precautions reviewed. Follow up with us in 3 months for further discussion of total knee replacement surgery versus continued conservative treatment. Would recommend a trial of Visco supplementation. Authorization will be obtained. Leticia Pena PA-C [address] [facility] [address], [place], [address], [place] [facility] 03/16/2024 14:26:45 OBGyn Episode No OBEpisode recorded.
--- OUTSIDE RECORDS SUMMARY | 2024-06-09 16:38 | XMS_ITS | Continuity of Care Document ---
Author Organization [facility], [facility] 1st Floor Address [address] [place] [address] Care Team Providers Care Aircraft Log Clerk Name Role Phone LAN VALENTE Primary Care Provider Assessment No assessment recorded. [...] Address Organization Details Recorded Time No complaints [id number] Active Status : 'I'; Not Available [facility] 4 09:17:34 Problem Notes None recorded. Procedures Surgical History Date Name Laterality Status Provider Name and Address Organization Details Recorded Time 4 Knee Kenalog 40 1cc Injection, Bilateral completed Leticia Pena PA-C [address], [place], [address], [facility] 03/16/2024 14:26:22 4 Gel-One Knee Injection completed Morris Tesfaye PA-C [address], [place], [address], [facility] 01/15/2024 08:23:22 4 Knee Kenalog 40 1cc Injection, Bilateral completed Morris Tesfaye PA-C [address], [place], [address], [facility] 10/10/2023 07:34:11 Imaging Results None recorded. Procedure [...] Updated DateTime 03/14/2024 157.48 cm 32.2 kg/m2 15482.26 g KATIE PETIT [facility] 03/14/2024 09:01:58 Social History None recorded. Functional Status None recorded. Mental Status None recorded. Family History Nothing Reported. Medical History No medical history recorded. Gynecological HistoryNo gynecological history recorded. Obstetrics History GPAL:G 0 P 0 0 0 0 Past Encounters Encounter ID Performer Location Encounter Start Date Encounter Closed Date Diagnosis/Indication Diagnosis SNOMED-CT Code Diagnosis ICD10 Code [id number] HUY Tai [address] [place] [address] 03/14/2024 08:52:46 04/06/2024 15:37:39 Osteoarthritis of right knee joint 7474759380 24228 M17.11 Osteoarthr itis of left knee joint 3391890044 33650 M17.12 Health Concerns Section Related Observation LastModified by Organization Detai ls LastModified Time None Recorded Concern Status LastModified by Organization Details LastModified Time None Recorded Payers Encounter Date Sequence Insurance Name Policy Number Policy Engle Covered Member ID Engle Member ID Guarantor Name 03/14/2024 1 [employer] MEDICARE ADVANTAGE PLAN (MEDICARE REPLACEMENT HMO) [id number] 04 Brandy Mackenzie Avril Pegueroiwa [id number] Brandy Mackenzie Miguea Notes Date Note Type Note Provider Name and Address Organization Details Recorded Time 03/14/2024 text/html I am seeing the patient today under the supervision of {{Selina Roth dler#}} who was available but who did [...] will be obtained. Leticia Pena PA-C [address] [facility] [address], [place], [address], [facility] [place] [facility] 03/16/2024 14:26:45 OBGyn Episode No OBEpisode recorded.
--- OUTSIDE RECORDS SUMMARY | 2024-06-09 16:38 | XMS_ITS ---
Author Organization [facility] Address [address] [place] [address] Care Team Providers Care Hide Handler Name Role Phone Yevgeniy LEIVA, Linda Ramirez Primary Care Provider Un available Dinorah Maloney Unavailable [phone] Allergies Allergen (clinical drug ingredient) Drug/Non Drug Allergy documented on EMR Reaction Allergy Type Onset Date Status erythromycin Erythromycin Z-PAC/fainted Drug Allergy Active REASON FOR VISIT PCP - 05/2023, Skin Problem, Wart(s) Medications Medication SIG (Take, Route, Frequency, Duration) Notes Start Date End Date Status Hydrocortisone 2.5 % 1 application Externally Once a day for 30 days 06/11/2023 Not-Taking Clotrimazole-Betamethasone 1-0.05 % 1 application to affected area Externally Twice a day to affected areas on feet for 30 days 01/19/2022 Active Ciclopirox Olamine 0.77 % 1 application to affected area Externally Twice a day to effected areas on feet for 30 days 06/11/2023 Active Vitamin D3 5000 UNIT as directed Orally Active Ciclopirox Olamine 0.77 % 1 application to affected area Externally to feet Twice a day for 30 days Not-Taking Calcium + D Active Cranberry Active Social History Tobacco Use: Social History Observation Description Date Details (start date - stop date) Never Smoker NA - NA Tobacco Use/Smoking Question Answer Notes Are you a: nonsmoker Additional Findings: Tobacco Non-User Aggressive non-smoker Alcohol Screen Question Answer Notes Did you have a drink contain ing alcohol in the past year? Yes How often did you have a dri nk containing alcohol in the past year? 4 or more times a week (4 points) Points 4 Interpretation Positive Tobacco use other than smoking: Question Answer Notes Are you an other tobacco user? No Vital Signs Height 5 ft 2 in in 07/17/2023 Weight 173 lbs 07/17/2023 BMI 31.64 kg/m2 07/17/2023 Encounters Encounter Location Date Provider Diagnosis [facility] [place] [address] [place] [address] 07/17/2023 Dinorah Maloney Tinea pedis of both feet B35.3 ; Dermatitis L30.9 ; Right foot pain M79.671 ; Plantar wart B07.0 and Left foot pain M79.672 Assessments Encounter Date Diagnosis (ICD Code) Assessment Notes Treatment Notes Treatment Clinical Notes Section Notes 07/17/2023 Tinea pedis of both feet (ICD-10 - B35.3) 07/17/2023 Dermatitis (ICD-10 - L30.9) 07/17/2023 Right foot pain (ICD-10 - M79.671) 07/17/2023 Plantar wart (ICD-10 - B07.0) 07/17/2023 Left foot pain (ICD-10 - M79.672) Plan Of Treatment Next Appt Details Follow Up: prn, Reason: Procedure Notes * Category Sub-Category Detail Notes Wart Treatment Procedure Verrucae were de brided to pin-point bleeding margins with sterile 15 surgical blade, silver nitrate chemocautery applied, recomm. immune-boosting meds such as zinc, recomm. follow up with topical chemosurgical agents, Pt defers any other forms of tx (49157) Progress Notes * Brandy AGUERO MDOB:[birth year] (78 yo F)Acc No.[id number]:07/17/2023 Progress Notes Patient:?Brnady Aguero Provider:?Dinorah Maloney DPM :1945???Age:78 Y???Sex:Female D ate:07/17/2023 Address:[address] [place], [place] [id number] Pcp:Avril Bhakta Subjective: * Chief Complaints: * ???PCP - 05/2023Skin Problem Wart(s) * HPI: ???Skin problems:?Pt States PCP Visit: ?DATE?06/17/2023 ?Nature:?dryness itching redness scaling.?Location:?B/L?feet and ankles.?Duration:?a few months.?Onset/Cause:?gradual.?Course:?improved at 90%.?Treatments:?OTC cream, Ciclopirox medication ( Hydrocortisone), Clotimazole-Betamethasone.?Severity/Quality:?severe.? * ROS:?General/Constitutional:?Nausea?denies, denies.?Vomiting?denies, denies.?Hunger Thirst?denies, denies.?Loss appetite?denies, denies.?Chills?denies, denies.?Fatigue?denies, denies.?Fever?denies, denies.?Night Sweats denies, denies.?Unexplained weight loss?denies, denies.?Unexplained weight gain?denies, denies.?HEENTM:?Dentures?denies, denies.?Dizziness?denies, denies.?Glasses/contacts?admits, admits.?Retinopathy?denies, denies.?Blurred/double vision?denies, denies.?TMJ?denies, denies.?Discharge/drainage?denies, denies.?Implants?denies, denies.?Sore throat?denies, denies.?Dental implants?denies, denies.?Hard of hearing ?admits, admits.?Difficulty chewing/swallowing/speaking?denies, denies.?Nose bleeds?denies, denies.?Sore mouth?denies, denies.?Respiratory:?On Oxygen?denies, denies.?Pneumonia/pleurisy?denies, denies.?Bronchitis?denies, denies.?Emphysema?denies, denies.?Coughing?denies, denies.?Cough blood?denies, denies.?Shortness of breath?denies, denies.?Wheezing?denies, denies.?Cardiovascular:?Pacemaker?denies, denies.?MVP?denies, denies.?WPW?denies, denies.?CHF?denies, denies.?Heart attack?denies, denies.?Septal defect?denies, denies.?Rapid beat?denies, denies.?Chest pain ?denies, denies.?Atrial Fib.?denies, denies.?Murmur/Palpitations?denies, denies.?Gastrointestinal:?Hemorrhoids?denies, denies.?Stomach/Abdominal pain?denies, denies.?Dark blood stool?denies, denies.?Irritable bowel ?denies, denies.?Constipation?denies, denies.?Diarrhea?denies, denies.?Hematology:?Swelling?admits, admits.?Clots?denies, denies.?Varicose Veins?admits, admits.?Bruising?denies, denies.?Bleeding problem?denies, denies.?Genitourinary:?Blood urine?denies, denies.?Frequent/Painfu/urination/bladder control?denies, denies.?Kidney stones?denies, denies.?Infection (UTI)?denies, denies.?Nephropathy?denies, denies.?sex trans dis (STD)?denies, denies.?Prostate?denies, denies.?Musculoskeletal:?Hammertoes?denies, denies.?Bunions?denies, denies.?Back Pain?denies, denies.?Muscle Cramps/ Resting?denies, denies.?Muscle cramps / walking?denies, denies.?Generalized aches and pains?admits, admits.?Weakness?denies, denies.?Integ.:?Leal?denies, denies.?Scars?denies, denies.?Corns/calluses?admits, admits.?Ingrown nails?denies, denies.?Painful nails?denies, denies.?Open Sores?denies, denies.?Rashes?denies, denies.?Neurologic:?Difficulty sleeping?denies, denies.?Brain disorder?denies, denies.?Numbness?denies, denies.?Balance trouble?denies, denies.?Confusion?denies, denies.?Fainting/blackouts?denies, denies.?Tingling?denies, denies.?Tremors?denies, denies.? * Medical History:? * Surgical History:?Hysterecto my 12/07/1985Gall bladder 02/16/1988Carpal Tunnel 09/2012Repair ear drum 11/02/2016Hand Surgery colonoscopy wisdom teeth extraction * Hospitalization/Major Diagno stic Procedure:?Denies Past Hospitalization * Family History:?Mother: dece ased.?Father: , cancer.? * Social History:?Tobacco Use:?Tobacco Use/Smoking?Are you a:?nonsmoker ?Additional Findings: Tobacco Non-User?Aggressive non-smoker ?Tobacco use other than smoking?Are you an other tobacco user??No ???Drugs/Alcohol:?Drugs?Have you used drugs other than those for medical reasons in the past 12 months??No ?Alcohol Screen?Did you have a drink containing alcohol in the past year??Yes ?How often did you have a drink containing alcohol in the past year??4 or more times a week (4 points) ?Points?4 ?Interpretation?Positive ???Miscellaneous:?Caffeine: yes, frequency: 3 cups per day. ?Children: yes, 2. ?no Exercise. ?Marital status: . ?Occupation: retired- daycare. * Medications:?TakingCalcium + D Cranberry Vitamin D3 5000 UNIT Capsule as directed Orally Clotrimazole-Betamethasone 1-0.05 % Cream 1 application to affected area Externally Twice a day to affected areas on feetCiclopirox Olamine 0.77 % Cream 1 application to affected area Externally Twice a day to effected areas on feetTaking Calcium + D Taking Cranberry Taking Vitamin D3 5000 UNIT Capsule as directed Orally Taking Clotrimazole-Betamethasone 1-0.05 % Cream 1 application to affected area Externally Twice a day to affected areas on feetTaking Ciclopirox Olamine 0.77 % Cream 1 application to affected area Externally Twice a day to effected areas on feetNot-Taking/PRNCiclopirox Olamine 0.77 % Cream 1 application to affected area Externally to feet Twice a dayHydrocortisone 2.5 % Cream 1 application Externally Once a dayMedication List reviewed and reconciled with the patientNot-Taking/PRN Ciclopirox Olamine 0.77 % Cream 1 application to affected area Externally to feet Twice a dayNot-Taking/PRN Hydrocortisone 2.5 % Cream 1 application Externally Once a dayMedication List reviewed and reconciled with the patient * Allergies:?Erythromycin: Z-P AC/faintedyes[Allergies Verified] Objective: * Vitals:?Ht:5 ft 2 in, Wt:173 , BMI:31.64, Shoe size:7. * Examination: ???General Examination: ?GENERAL APPEARANCE:?Reveals a pleasant, alert, well-nourished, well- developed, well hydrated individual, who demonstrates proper attention to hygiene/body habitus, and is in no acute distress, Pt serves as own?historian for office visit today.?ORIENTED:?person, place, and time.?Neurological: ?SENSORY:?Neurological exam reveals intact sensorium, pain sensation normal, vibration sensation intact, pinprick sensation is normal in the lower extremities, Pt denies, anesthesia, burning, paresthesia, tingling, B/L.?DEEP TENDON REFLEXES:?Achilles, 08/04, B/L.?Vascular: ?DP PULSES:?09/01, B/L.?PT PULSES:?09/01, B/L.?CAPILLARY FILL TIME:?immediate, all digits, B/L.?SKIN TEMPERTURE GRADIENT OF THE LOWER EXTERMITIES:?warm to cool, proximal to distal, B/L.?HAIR GROWTH/TEXTURE/ELASTICITY/TURGOR:?normal, B/L.?PIGMENTATION:? mottled, B/L brawny, B/L.?EDEMA:? 2/4 B/L Ankle(s) Leg(s).?Dermatologic: ?SKIN FINDINGS:?Skin shows approximately _90__% LESS sign(s) of, erythema, scaling, in a moccasin fashion, no fissure(s) present, B/L as well as on medial and lateral ankles B/L.?VERRUCA:? Reveals Multiple ( 4), multi-loculated , mosaic-patterned, round, raised, flat-topped, petechial bleeding papule(s), with cauliflower appearance and interruption of skin lines, with pain to lateral compression, and size estimated at 3mm diameter plantar Forefoot B/L.?Orthopedic: ?MUSCLE STRENGTH:?5/5 all groups in a symmetrical fashion , B/L.? Assessment: * Assessment: 1.?Tinea pedis of both feet - B35.3, Acute problem, Uncomplicated (3)?2.?Dermatitis - L30.9?3.?Right foot pain - M79.671?4.?Left foot pain - M79.672?5.?Plantar wart - B07.0 (Primary)? Plan: * Treatment: * Procedures:?Wart Treatment:?Procedure?Verrucae were debrided to pin-point bleeding margins with sterile 15 surgical blade, silver nitrate chemocautery applied, recomm. immune-boosting meds such as zinc, recomm. follow up with topical chemosurgical agents, Pt defers any other forms of tx (39121).? * Procedure Codes:?93355 Wart Destruction, 1-14, Modifiers: XS * Preventive Medicine:? ??Counseling:?Discussion:?-13: Office or other outpatient visit for the evaluation and management of an established patient, which required a medically appropriate history and/or examination and LOW level of DECISION MAKING for: 1 STABLE ACUTE UNCOMPLICATED PROBLEM, 2 OR MORE MINOR PROBLEMS, OR 1 STABLE CHRONIC PROBLEM, THAT POSE(S) A LOW RISK FOR MORBIDITY/MORTALITY. The visit on the day of the encounter encompassed interpreting the data and educating the patient as to the nature of their condition, treatment options available according to their individual PMH, meds, allergies, and overall health/living conditions, as well as any potential risks or complications that may occur from a failure to adhere to, and participate in, the recommended course of therapy. The discussion included a complete verbal, and/or written explanation of the examination results, any x-rays taken, the proposed diagnosis, and outline of the treatment plan. A schedule for future care needs was also explained. The patient verbalized an understanding of the instructions at this time and agreed to be an active participant in their treatment. If the patient should think of any questions or concerns after the visit, I have encouraged the patient to call the office.?Tinea Pedis:?Given recent successful results to treatment, The patient is to cont the rx cream as directed.? * Follow Up:?prn * Images: * Sign off status: Completed true * Provider:?Dinorah Maloney DPM Date:? Generated for Chuck leon/Cem/Joaquin on:?06/09/2024 04:38 PM EST History and Physical Notes * HPI (History of Present Illness) Category Sub-Category Detail Notes Category Not es Skin problems Nature: dryness itching redness sca ling Location: B/L feet and ankles Duration: a few months Onset/Cause: gradual Course: improved at 90% Treatments: OTC cream, Ciclopiro x medication ( Hydrocortisone), Clotimazole-Betamethasone Severity/Quality: severe Pt States PCP Visit: DATE: 06/17/2023 Examination Category Sub-Category Detail Notes Category Not es Neurological SENSORY: Neurological exa m reveals intact sensorium, pain sensation normal, vibration sensation intact, pinprick sensation is normal in the lower extremities, Pt denies, anesthesia, burning, paresthesia, tingling, B/L DEEP TENDON REFLEXES: Achilles, 2/4, B/L Dermatologic SKIN FINDINGS: Skin shows appro ximately _90__% LESS sign(s) of, erythema, scaling, in a moccasin fashion, no fissure(s) present, B/L as well as on medial and lateral ankles B/L VERRUCA: Reveals Multiple ( 4 ), multi-loculated , mosaic-patterned, round, raised, flat-topped, petechial bleeding papule(s), with cauliflower appearance and interruption of skin lines, with pain to lateral compression, and size estimated at 3mm diameter plantar Forefoot B/L Orthopedic MUSCLE STRENGTH: 5/5 all groups in a symm etrical fashion , B/L General Examination GENERAL APPEARANCE: Reveals a pleasant, alert, well- nourished, well-developed, well hydrated individual, who demonstrates proper attention to hygiene/body habitus, and is in no acute distress, Pt serves as own historian for office visit today ORIENTED: person, place, and t ervin Vascular DP PULSES(B): 3/4, B/L PT PULSES(B): 3/4, B/L CAPILLARY FILL TIME: immediate, all digi ts, B/L TEMPERTURE GRADIENT(C): warm to cool, pr oximal to distal, B/L TROPHIC CONDITION-TEXTURE/ELASTICITY/TURGOR/HAIR GROWTH(B): normal, B/L EDEMA(C): 2/4 B/L Ankle(s) Leg (s) PIGMENTATION: mottled, B/L brawny, B/L
--- OUTSIDE RECORDS SUMMARY | 2024-06-09 16:39 | XMS_ITS ---
Author Organization [facility] Address [address] [facility] [place] [address] Care Team Providers Care Pump Assembler Name Role Phone Yevgeniy LEIVA, Linda Ramirez Primary Care Provider Un available Dinorah Maloney Unavailable [phone] Allergies Allergen (clinical drug ingredient) Drug/Non Drug Allergy documented on EMR Reaction Allergy Type Onset Date Status erythromycin Erythromycin Z-PAC/fainted Drug Allergy Active REASON FOR VISIT PCP - 05/2023, Skin Problem Medications Medication SIG (Take, Route, Frequency, Duration) Notes Start Date End Date Status Ciclopirox Olamine 0.77 % 1 application to affected area Externally Twice a day to effected areas on feet for 30 days 06/11/2023 Active Hydrocortisone 2.5 % 1 application Exter opal Once a day for 30 days 06/11/2023 Active Clotrimazole-Betamethasone 1-0.05 % 1 application to affected area Externally Twice a day to affected areas on feet for 30 days 01/19/2022 Active Ciclopirox Olamine 0.77 % 1 application to affected area Externally to feet Twice a day for 30 days Active Vitamin D3 5000 UNIT as directed Orally Active Cranberry Active Calcium + D Active Social History Tobacco Use: Social History [...] user? No Vital Signs Height 5 ft 3 in in 06/11/2023 Weight 176 lbs 06/11/2023 BMI 31.17 kg/m2 06/11/2023 Encounters Encounter Location Date Provider Diagnosis [facility] [place] [address] [place] [address] 06/11/2023 Dinorah Maloney Tinea pedis of both feet B35.3 ; Dermatitis L30.9 ; Pruritus L29.9 and Local edema R60.0 Assessments Encounter Date Diagnosis (ICD Code) Assessment Notes Treatment Notes Treatment Clinical Notes Section Notes 06/11/2023 Tinea pedis of both feet (ICD-10 - B35.3) 06/11/2023 Dermatitis (ICD-10 - L30.9) 06/11/2023 Pruritus (ICD-10 - L29.9) 06/11/2023 Local edema (ICD-10 - R60.0) Plan Of Treatment Medication Medication Name Sig Start Date Stop Date Notes Ciclopirox Olamine 0.77 % 1 application to affected area Externally Twice a day to effected areas on feet for 30 days 06/11/2023 Hydrocortisone 2.5 % 1 application Exter opal Once a day for 30 days 06/11/2023 Next Appt Details Follow Up: 4 Weeks, Reason: Progress Notes * Brandy AGUERO MDOB:[birth year] (78 yo F)Acc No.[id number]:06/11/2023 Progress Note Patient:?Brnady Aguero Provider:?Dinorah Maloney DPM :1945???Age:78 Y???Sex:Female D ate:06/11/2023 Address:[address] [place] [address] [facility] Pcp:Avril Bhakta Subjective: * Chief Complaints: * ???PCP - 05/2023Skin Problem * HPI: ???Skin problems:?Nature:?dryness itching redness scaling.?Location:?B/L?feet and ankles.?Duration:?a few months.?Onset/Cause:?gradual.?Course:?worse.?Treatments:?OTC cream, used Ciclopirox in the past, but no antifungals recently.?Severity/Quality:?severe.? * ROS:?General/Constitutional:?Nausea?denies.?Vomiting?denies.?Hunger Thirst?denies.?Loss appetite?denies.?Chills?denies.?Fatigue?denies.?Fever?denies.?Night Sweats?denies.?Unexplained weight loss?denies.?Unexplained weight gain?denies.?HEENTM:?Dentures?denies.?Dizziness?denies.?Glasses/contacts?admits.?Retinopathy?de nies.?Blurred/double vision?denies.?TMJ?denies.?Discharge/drainage?denies.?Implants?denies.?Sore throat?denies.?Dental implants?denies.?Hard of hearing ?admits.?Difficulty chewing/swallowing/speaking?denies.?Nose bleeds?denies.?Sore mouth?denies.?Respiratory:?On Oxygen?denies.?Pneumonia/pleurisy?denies.?Bronchitis?denies.?Emphysema?denies.?C oughing?denies.?Cough blood?denies.?Shortness of breath?denies.?Wheezing?denies.?Cardiovascular:?Pacemaker?denies.?MVP?denies.?WPW?denies.?CHF?denies.?Heart attack?denies.?Septal defect?denies.?Rapid beat?denies.?Chest pain ?denies.?Atrial Fib.?denies.?Murmur/Palpitations?denies.?Gastrointestinal:?Hemorrhoids?denies.?Stomach/Abdominal pain?denies.?Dark blood stool?denies.?Irritable bowel ?denies.?Constipation?denies.?Diarrhea?denies.?Hematology:?Swelling?admits.?Clots?denies.?Varicose Veins?admits.?Bruising?denies.?Bleeding problem?denies.?Genitourinary:?Blood urine?denies.?Frequent/Painfu/urination/bladder control?denies.?Kidney stones?denies.?Infection (UTI)?denies.?Nephropathy?denies.?sex trans dis (STD)?denies.?Prostate?denies.?Musculoskeletal:?Hammertoes?denies.?Bunions?denies.?Back Pain?denies.?Muscle Cramps/ Resting?denies.?Muscle cramps / walking?denies.?Generalized aches and pains?admits.?Weakness?denies.?Integ.:?Leal?denies.?Scars?denies.?Corns/calluses?admits.?Ingrown nails?denies.?Painful nails?denies.?Open Sores?denies.?Rashes?denies.?Neurologic:?Difficulty sleeping?denies.?Brain disorder?denies.?Numbness?denies.?Balance trouble?denies.?Confusion?denies.?Fainting/blackouts?denies.?Tingling?denies.?Tr emors?denies.? * Medical History:? * Surgical History:?Hysterecto my 12/07/1985Gall bladder 02/16/1988Carpal Tunnel 09/2012Repair ear drum 11/02/2016 * Hospitalization/Major Diagno stic Procedure:?Denies Past Hospitalization [...] 2. ?no Exercise. ?Marital status: . ?Occupation: retired. * Medications:?TakingCalcium + D Cranberry Vitamin D3 5000 UNIT Capsule as directed Orally Ciclopirox Olamine 0.77 % Cream 1 application to affected area Externally to feet Twice a dayClotrimazole-Betamethasone 1-0.05 % Cream 1 application to affected area Externally Twice a day to affected areas on feetMedication List reviewed and reconciled with the patientTaking Calcium + D Taking Cranberry Taking Vitamin D3 5000 UNIT Capsule as directed Orally Taking Ciclopirox Olamine 0.77 % Cream 1 application to affected area Externally to feet Twice a dayTaking Clotrimazole-Betamethasone 1-0.05 % Cream 1 application to affected area Externally Twice a day to affected areas on feetMedication List reviewed and reconciled with the patient * Allergies:?Erythromycin: Z-P AC/faintedyes[Allergies Verified] Objective: * Vitals:?Ht: 5 ft 3 in, Wt: 1 76, BMI: 31.17, Shoe size: 7, Wt-k.83 kg. * Examination: ???General Examination: ?GENERAL APPEARANCE:?Reveals a [...] 2/4 B/L Ankle(s) Leg(s).?Dermatologic: ?SKIN FINDINGS:?Skin shows sign(s) of, erythema, scaling, in a moccasin fashion, no fissure(s) present, B/L as well as on medial and lateral ankles B/L.?Orthopedic: ?MUSCLE STRENGTH:?5/5 all groups in a symmetrical fashion , B/L.? Assessment: * Assessment: 1.?Dermatitis - L30.9?2.?Tin ea pedis of both feet - B35.3 (Primary), Acute problem, Uncomplicated (3)?3.?Pruritus - L29.9?4.?Local edema - R60.0? Plan: * Treatment: 2.?Dermatitis? Start Hydrocortisone Cream, 2.5 %, 1 application, Externally, Once a day, 30 days, 1, Refills 2.?? * Procedure Codes:? * Preventive Medicine:? ??Counseling:?Discussion:?-13: Office or other [...] encouraged the patient to call the office.?Tinea Pedis:?The patient was counseled on the diagnosis, potential etiologies, and treatment options for their skin condition. We discussed the risks and benefits of each option from performing no treatment, to utilizing OTC topical skin creams, prescription topical creams, customized compounded topical medications, and, if necessary, to utilize oral antifungal therapy. We discussed the advantages and disadvantages of each possible treatment and importance for adherence to all the recommended therapies for optimum success and avoid potential complications such as open sore/infection/possible hospitalization. We discussed the potential effectiveness of each topical preparation as well as each ones possible side effects and/or patient medication interactions if oral therapy is selected. Patient questions re: the advantages and disadvantages of each treatment choice, medication use/dosage, successful outcomes, and application consistency were reviewed and the patient verbalized that all answers were clearly understood. The patient was told they can help alleviate symptoms by utilizing moisture absorbant innersoles with activated charcoal and baking soda, applying antifungal sprays daily, aerating toe web spaces at night by putting cotton or lambs wool between the toes, alternating shoe gear daily if possible so they can dry out, changing socks at least once during the day, wearing well-ventilated shoes or sandals. The patient has decided to apply antifungal skin creams to their feet as directed. Rx was sent to their pharmacy at the time of visit.? * Follow Up:?4 Weeks * Images: * Sign off status: Completed true * Provider:?Dinorah Maloney DPM Date:?05/2023 Generated for Chuck leon/Cem/Joaquin on:?06/09/2024 04:38 PM EST History and Physical Notes * HPI (History of Present Illness) Category Sub-Category Detail Notes Category Not es Skin problems Nature: dryness itching redness sca ling Location: B/L feet and ankles Duration: a few months Onset/Cause: gradual Course: worse Treatments: OTC cream, used Cicl opirox in the past, but no antifungals recently Severity/Quality: severe Examination Category Sub-Category Detail Notes Category Not es Neurological SENSORY: Neurological exa m reveals intact sensorium, pain sensation normal, vibration sensation intact, pinprick sensation is normal in the lower extremities, Pt denies, anesthesia, burning, paresthesia, tingling, B/L DEEP TENDON REFLEXES: Achilles, 2/4, B/L Dermatologic SKIN FINDINGS: Skin shows sign( s) of, erythema, scaling, in a moccasin fashion, no fissure(s) present, B/L as well as on medial and lateral ankles B/L Orthopedic MUSCLE STRENGTH: 5/5 all groups [...]
--- OUTSIDE RECORDS SUMMARY | 2024-06-09 16:39 | XMS_ITS | Patient Health Record ---
Author Organization [facility] carlos MariDana Address [address] [place] [address] Care Team Providers Care Associate Professor Of Communication Name Role Phone Yevgeniy LEIVA, Linda Ramirez Primary Care Provider Un available [place]siobhan Dinorah Unavailable [phone] Allergies Allergen (clinical drug ingredient) Drug/Non Drug Allergy documented on EMR Reaction Allergy Type Onset Date Status erythromycin Erythromycin Z-PAC/fainted Drug Allergy Active Reason For Referral No Information Medications Medication SIG (Take, Route, Frequency, Duration) [...] Not-Taking Calcium + D Active Cranberry Active Immunizations Vaccine Route Administration Date Status Comme nts COVID-19 Pfizer BioNTech Vaccine Unknown 08/01/2020 Administered Second Dose: 08/22/2020 Social History Tobacco Use: Social History Observation [...] Are you an other tobacco user? No Problems Problem Type SNOMED Code ICD Code Onset Dates Problem Status W/U Status Risk Notes Problem [id number] Plantar wart (B07.0) Active confirmed Vital Signs Height 5 ft 2 in in 07/17/2023 Weight 173 lbs 07/17/2023 BMI 31.64 kg/m2 07/17/2023 Encounters Encounter Location Date Provider Diagnosis [facility] [address] [address] 06/11/2023 Dinorah Perica Tinea pedis of both feet B35.3 ; Dermatitis L30.9 ; Pruritus L29.9 and Local edema R60.[address] [facility] [address] 07/17/2023 Dinorah Perica Tinea pedis of both feet B35.3 ; Dermatitis L30.9 ; Right foot pain M79.671 ; Plantar wart B07.0 and Left foot pain M79.672 Assessments Encounter Date Diagnosis (ICD Code) Assessment Notes Treatment Notes Treatment Clinical Notes Section Notes 06/11/2023 Dermatitis (ICD-10 - L30.9) 06/11/2023 Tinea pedis of both feet (ICD-10 - B35.3) 07/17/2023 Tinea pedis of both feet (ICD-10 - B35.3) 07/17/2023 Dermatitis (ICD-10 - L30.9) 06/11/2023 Pruritus (ICD-10 - L29.9) 06/11/2023 Local edema (ICD-10 - R60.0) 07/17/2023 Right foot pain (ICD-10 - M79.671) 07/17/2023 Left foot pain (ICD-10 - M79.672) 07/17/2023 Plantar wart (ICD-10 - B07.0) Plan Of Treatment No Information Insurance Providers Payer Name Payer Address Payer Phone Subscriber Number Group Number Insured Name Patient Relationship to Insured Coverage Start Date Coverage End Date [facility] [address] [place] [address] [id number] Brandy Aguero Self - patient is the insured [employer] [address] [place] [phone] [id number] Brandy Aguero Self - patient is the insured Medical (General) History Medical History History ICD Code Arthritis Back,Hip,and Knee pain Sinus conditions Measles Chicken pox Surgical History Surgery Date(Month/Year) Hysterectomy 12/07/1985 Gall bladder 02/16/1988 Carpal Tunnel 09/2012 Repair ear drum 11/02/2016 Hand Surgery colonoscopy wisdom teeth extraction
== END 2024-06-03 08:58 | disposition home or self-care (01) ==
LOC: HO.HMGCLDS 08:57
PROVIDERS: PCP Internal Medicine; Visit Provider Internal Medicine
DX: Z78.0 Asymptomatic menopausal state (principal); I83.90 Asymptomatic varicose veins of unspecified lower extremity; Z71.89 Other specified counseling; Z00.01 Encounter for general adult medical examination with abnormal findings; M85.80 Other specified disorders of bone density and structure, unspecified site; Z13.220 Encounter for screening for lipoid disorders; Z13.1 Encounter for screening for diabetes mellitus
CPT/HCPCS: 36415; 80048; 80061; 82306; 85025